=== PATIENT | male | born 1965 | race African-American/Black ===

== ENCOUNTER 2021-04-27 12:47 | Emergency (ER) | payer SELFPAY ==
[2021-04-27 15:02] LABS: SARS-CoV-2 NAA Rapid Test Not Detected (NotDetected)
== END 2021-04-27 13:38 | disposition home or self-care (01) ==
LOC: CSHERS 12:47
DX: J11.1 Influenza due to unidentified influenza virus with other respiratory manifestations (principal); Z20.822 Contact with and (suspected) exposure to COVID-19
CPT/HCPCS: 0240U; 99283